=== PATIENT | male | born 1975 | race Caucasian/White ===

== ENCOUNTER 2024-06-19 11:33 | Observation (INO) | payer BC, OTHER ==
[2024-06-19] MEDS: SODIUM CHLORIDE 0.9% 500 ML INFUS.BAG IV ONE ×3 (12:55→17:23)
[2024-06-19 13:50] LABS: VENOUS BASE EXCESS -7.8 mmol/L (-2-2); VENOUS O2 SATURATION 78.6 % (70-80); VENOUS PCO2 36.8 mmHg (38-52); VENOUS PH 7.3 (7.310-7.410)
[2024-06-19 13:54] LABS: HEMOGLOBIN 15.7 GM/dL (11.7-16.9); RBC 4.82 M/mm3 (4.00-5.60); WHITE BLOOD COUNT 12.2 K/mm3 (4.0-10.0)
[2024-06-19 13:55] LABS: BASO % 0.3 % (0-2.0); EOS % 0.4 % (0-4.5); LYMPH % 19.6 % (8-40); MCH 32.6 pg (25.7-33.7); MCHC 34.1 g/dl (32.0-35.9); MEAN CELL VOLUME 95.4 fl (80-96); MEAN PLT VOLUME 8.5 fl (7.5-11.1); MONO % 7.7 % (3.8-10.2); PLATELET COUNT 307 10^3/uL (134-434); RDW 12.6 % (11.9-15.9)
[2024-06-19 14:19] LABS: THROAT:GRP A STREP NOT DETECTED (NOTDETECTED)
[2024-06-19 14:20] LABS: CALCIUM 9.3 mg/dL (8.5-10.1)
[2024-06-19 14:21] LABS: ALBUMIN 3.6 g/dl (3.4-5.0); BLOOD UREA NITROGEN 12.9 mg/dL (7-18); MAGNESIUM 2.2 mg/dL (1.8-2.4)
[2024-06-19 14:24] LABS: CREATININE 0.8 mg/dL (0.55-1.3); PHOSPHOROUS 4.2 mg/dL (2.5-4.9)
[2024-06-19 14:25] LABS: TOT PROT 7.2 g/dl (6.4-8.2)
[2024-06-19 14:35] LABS: URINE APPEARANCE CLEAR; URINE BILIRUBIN NEGATIVE (NEGATIVE); URINE COLOR YELLOW; URINE GLUCOSE (UA) 3+ (NEGATIVE); URINE KETONE 3+ (NEGATIVE); URINE LEUK ESTERASE NEGATIVE (NEGATIVE); URINE NITRITE NEGATIVE (NEGATIVE); URINE PROTEIN NEGATIVE (NEGATIVE); URINE UROBILINOGEN 0.2 mg/dL (0.2-1.0)
[2024-06-19] MEDS: INSULIN REGULAR HUMAN 100 UNITS/ML *VIAL SQ ONE (14:53)
[2024-06-19] MEDS ORDERED: POTASSIUM CHLORIDE TABS 20 MEQ TABLET.ER (FP) PO ONE (14:55)
[2024-06-19] MEDS ORDERED: INSULIN ASPART SLIDING SCALE (NOVOLOG) 1 VIAL SQ ONE (14:56)
[2024-06-19] MEDS: POTASSIUM CHLORIDE TABS 20 MEQ TABLET.ER (FP) PO ONE (15:00)
[2024-06-19] MEDS: INSULIN (NOVOLOG) ASPART 100 UNITS/ML 10ML VIAL SQ ONE (15:00)
[2024-06-19 15:09] LABS: HIV INTERPRETATION NEGATIVE (NEGATIVE)
[2024-06-19 15:21] VITALS: RESP 18
[2024-06-19 16:39] LABS: POTASSIUM 3.6 mmol/L (3.5-5.1)
[2024-06-19 16:42] LABS: BLOOD UREA NITROGEN 10.7 mg/dL (7-18); CALCIUM 8.4 mg/dL (8.5-10.1)
[2024-06-19 16:46] LABS: CREATININE 0.6 mg/dL (0.55-1.3)
[2024-06-19 16:47] LABS: BILIRUBIN,TOTAL 0.8 mg/dL (0.2-1); TOT PROT 6.1 g/dl (6.4-8.2)
[2024-06-19 20:00] LABS: VENOUS BASE EXCESS -8.3 mmol/L (-2-2); VENOUS O2 SATURATION 78.4 % (70-80); VENOUS PCO2 36.5 mmHg (38-52); VENOUS PH 7.295 (7.310-7.410)
[2024-06-19 20:23] LABS: POTASSIUM 3.7 mmol/L (3.5-5.1)
[2024-06-19 20:26] LABS: BLOOD UREA NITROGEN 9.4 mg/dL (7-18); CALCIUM 8.1 mg/dL (8.5-10.1)
[2024-06-19 20:29] LABS: CREATININE 0.5 mg/dL (0.55-1.3)
[2024-06-19] MEDS: SODIUM CHLORIDE 1,000 ML IV SCH (22:39)
[2024-06-19] MEDS: INSULIN (LEVEMIR) 100 UNITS/ML UNITS SQ ONE (23:27)
[2024-06-20 03:50] VITALS: BMI 24.1
[2024-06-20] MEDS ORDERED: INSULIN (LEVEMIR) 100 UNITS/ML UNITS SQ SCH (07:00)
[2024-06-20] MEDS: INSULIN ASPART SLIDING SCALE (NOVOLOG) 1 VIAL SQ SCH (07:13)
[2024-06-20] MEDS: INSULIN (LEVEMIR) 100 UNITS/ML UNITS SQ SCH (07:14)
[2024-06-20] MEDS: ENOXAPARIN NA (PORCINE) 40 MG/0.4 ML DISP.SYRIN SQ SCH (09:16)
[2024-06-20 10:40] LABS: HEMATOCRIT 42.1 % (35.4-49); HEMOGLOBIN 14.3 GM/dL (11.7-16.9); MCH 32.5 pg (25.7-33.7); MEAN CELL VOLUME 95.6 fl (80-96); MEAN PLT VOLUME 7.7 fl (7.5-11.1); PLATELET COUNT 271 10^3/uL (134-434); RDW 12.9 % (11.9-15.9)
[2024-06-20 11:03] LABS: POTASSIUM 3.9 mmol/L (3.5-5.1)
[2024-06-20 11:10] LABS: ALBUMIN 2.9 g/dl (3.4-5.0); BLOOD UREA NITROGEN 10.2 mg/dL (7-18); CALCIUM 8.5 mg/dL (8.5-10.1)
[2024-06-20 11:12] LABS: CREATININE 0.5 mg/dL (0.55-1.3)
[2024-06-20 11:13] LABS: BILIRUBIN,TOTAL 1.2 mg/dL (0.2-1); TOT PROT 5.8 g/dl (6.4-8.2)
[2024-06-20 13:44] VITALS: BP 106/60; PULSE 93; TEMP 97.9
== END 2024-06-20 14:40 | disposition home or self-care (01) ==
LOC: JER 11:33 → INTOOBSV 21:16 → JERBED 21:16 → UNDOADMOB 21:16 → J6S 22:12 → JERBED 22:12 → J6S 06-20 09:53 → JERBED 06-20 09:53
PROVIDERS: ADMIT Internal Medicine; ATTEND Internal Medicine
PROC: 3E0337Z Introduction of Electrolytic and Water Balance Substance into Peripheral Vein, Percutaneous Approach (ICD-10-PCS; principal; 2024-06-20)
PROC: 3E023GC Introduction of Other Therapeutic Substance into Muscle, Percutaneous Approach (ICD-10-PCS; 2024-06-20)
PROC: 3E013VG Introduction of Insulin into Subcutaneous Tissue, Percutaneous Approach (ICD-10-PCS; 2024-06-20)
DX: E11.10 Type 2 diabetes mellitus with ketoacidosis without coma (principal); D72.829 Elevated white blood cell count, unspecified; E78.5 Hyperlipidemia, unspecified; J06.9 Acute upper respiratory infection, unspecified; E11.9 Type 2 diabetes mellitus without complications
CPT/HCPCS: 0241U-QW; 36415; 71046-TC-FY; 80048; 80053; 81003; 82010; 82803; 82962; 83036; 83735; 84100; 85025; 85027; 86803; 87086; 87389; 87651; 93005; 93010; 96360; 96372; 99285-25; G0378